=== PATIENT | male | born 1970 | race Caucasian/White ===

== ENCOUNTER 2017-01-25 17:56 | Inpatient (IN) | payer OTHER ==
[~2017-01-25] VITALS: Ht 180.3 cm; Wt 84.1 kg
[~2017-01-25 17:56] MED LIST: ATI1 PO; FOL1 PO; MYCP EXT; NORCO1 TA1 PO; THERAGRAN-M1 TA4 PO; THI100 PO
[2017-01-25 20:31] LABS: BASOPHIL % 0.9 % (0-2); PLATELET COUNT 279 x10^3mcL (130-400); RED CELL DISTRIBUTION WIDTH 14.1 % (11.5-14.5)
[2017-01-25 20:43] LABS: CALCIUM 8.9 mg/dL (8.5-10.1); CARBON DIOXIDE 22.3 mmol/L (21-32); CHLORIDE SERUM 105 mmol/L (98-107); CREATININE SERUM 0.5 mg/dL (0.7-1.3); GFR1 > 60 mL/min; GLUCOSE SERUM 94 mg/dL (74-106); POTASSIUM SERUM 3.7 mmol/L (3.5-5.1); SODIUM SERUM 142 mmol/L (136-145)
[2017-01-25 20:48] LABS: ALBUMIN 3.4 g/dL (3.4-5.0); ALKALINE PHOSPHATASE 83 U/L (46-116); ALT/SGPT 34 U/L (16-63); AST/SGOT 31 U/L (15-37); BILIRUBIN TOTAL 0.4 mg/dL (0.20-1.00); TOTAL PROTEIN, SERUM 7.6 g/dL (6.4-8.2)
[2017-01-25 21:58] VITALS: BP 141/69
[2017-01-25 22:02] VITALS: Ht 180.3 cm; Wt 84.1 kg
[2017-01-25 22:09] LABS: T3 TOTAL 1.48 ng/mL
[2017-01-25 22:25] LABS: CHOLESTEROL/HDL RATIO 1.9
[2017-01-25 22:34] LABS: PHOSPHOROUS 4.7 mg/dL (2.5-4.9)
[2017-01-25 23:24] LABS: FREE T4 1.16 ng/dL (0.76-1.46); FREE THYROXINE INDEX 2.9 ug/dL (1.4-4.5); T4(THYROXINE) 8.8 ug/dL (4.7-13.3)
[2017-01-26 02:54] LABS: microscopic required? NO
[2017-01-26 03:07] LABS: urine erythrocyte NEGATIVE (NEGATIVE)
[2017-01-26 03:15] LABS: AMPHETAMINE QUAL UR NONE DETECTED (NEG <=1000)
[2017-01-26 05:54] VITALS: BP 141/81
[2017-01-26 07:26] LABS: BASOPHIL % 0.4 % (0-2); PLATELET COUNT 239 x10^3mcL (130-400); RED CELL DISTRIBUTION WIDTH 14.5 % (11.5-14.5)
[2017-01-26 07:33] LABS: CALCIUM 8.6 mg/dL (8.5-10.1); CARBON DIOXIDE 26.2 mmol/L (21-32); CHLORIDE SERUM 105 mmol/L (98-107); CREATININE SERUM 0.5 mg/dL (0.7-1.3); GFR1 > 60 mL/min; GLUCOSE SERUM 88 mg/dL (74-106); MAGNESIUM 2.1 mg/dL (1.8-2.4); PHOSPHOROUS 4.2 mg/dL (2.5-4.9); POTASSIUM SERUM 3.6 mmol/L (3.5-5.1); SODIUM SERUM 138 mmol/L (136-145)
[2017-01-26 09:38] VITALS: BP 117/73
[2017-01-26 13:34] VITALS: BP 134/91
[2017-01-26 17:11] VITALS: BP 137/81
[2017-01-26 21:55] VITALS: BP 129/79
[2017-01-27 05:46] VITALS: BP 130/95
[2017-01-27 05:57] LABS: BASOPHIL % 0.4 % (0-2); PLATELET COUNT 212 x10^3mcL (130-400); RED CELL DISTRIBUTION WIDTH 14.4 % (11.5-14.5)
[2017-01-27 06:12] LABS: CALCIUM 8.7 mg/dL (8.5-10.1); CARBON DIOXIDE 27.2 mmol/L (21-32); CHLORIDE SERUM 105 mmol/L (98-107); CREATININE SERUM 0.5 mg/dL (0.7-1.3); GFR1 > 60 mL/min; GLUCOSE SERUM 87 mg/dL (74-106); PHOSPHOROUS 3.9 mg/dL (2.5-4.9); POTASSIUM SERUM 3.7 mmol/L (3.5-5.1); SODIUM SERUM 141 mmol/L (136-145)
[2017-01-27 09:35] VITALS: BP 129/76
[2017-01-27] MEDS ORDERED: PERCOCET1 TAB PO (10:30)
[2017-01-27] MEDS ORDERED: COLACE100 MG PO (10:30)
[2017-01-27] MEDS ORDERED: AUG500 PO (10:34)
[2017-01-27] MEDS ORDERED: LAC PO (10:34)
[2017-01-27 11:22] VITALS: BP 129/76
== END 2017-01-27 13:35 | disposition home or self-care (01) | DRG 383 ==
LOC: ED 17:56 → DU 20:18 → MU 01-26 14:25
PROVIDERS: Emergency Medicine; ADMIT Family Medicine
DX: L03.115 Cellulitis of right lower limb (principal); G92 Toxic encephalopathy; G82.20 Paraplegia, unspecified; B18.2 Chronic viral hepatitis C; S81.851A Open bite, right lower leg, initial encounter; F10.129 Alcohol abuse with intoxication, unspecified; Z59.0 Homelessness; Z99.3 Dependence on wheelchair; Z68.25 Body mass index [BMI] 25.0-25.9, adult; X95.9XXS Assault by unspecified firearm discharge, sequela
CPT/HCPCS: 80307; 83880; 84439; 90715; G0480; J2270; J2405; J2543; J3490; J7030; J7040; Q0092

== ENCOUNTER 2017-01-27 15:07 | Emergency (ER) | payer OTHER ==
[~2017-01-27 15:07] MED LIST changes: +AUG500 PO; +COLACE100 MG PO; +LAC PO; +PERCOCET1 TAB PO
[2017-01-27 17:37] VITALS: BP 128/85
== END 2017-01-27 17:37 | disposition other institution (70) ==
LOC: ED 15:07
DX: Z02.89 Encounter for other administrative examinations (principal); Z88.1 Allergy status to other antibiotic agents

== ENCOUNTER 2017-01-27 15:07 | Emergency (ER) | payer OTHER | END 2017-01-27 17:37 | disposition other institution (70) | LOC: ED 15:07 | DX: Z02.89 Encounter for other administrative examinations (principal); G82.20 Paraplegia, unspecified; B19.20 Unspecified viral hepatitis C without hepatic coma; Z88.1 Allergy status to other antibiotic agents ==

== ENCOUNTER 2017-03-05 19:59 | Emergency (ER) | payer OTHER ==
[2017-03-06 04:00] VITALS: BP 158/98
== END 2017-03-06 04:00 | disposition home or self-care (01) ==
LOC: ED 19:59
DX: S63.502A Unspecified sprain of left wrist, initial encounter (principal); M79.601 Pain in right arm; I10 Essential (primary) hypertension; Z79.899 Other long term (current) drug therapy; Z86.19 Personal history of other infectious and parasitic diseases; Z88.2 Allergy status to sulfonamides; W05.0XXA Fall from non-moving wheelchair, initial encounter; Y93.89 Activity, other specified; Y92.89 Other specified places as the place of occurrence of the external cause; Y99.8 Other external cause status

== ENCOUNTER 2017-03-31 18:39 | Emergency (ER) | payer OTHER ==
[2017-03-31 19:09] LABS: BASOPHIL % 0.7 % (0-2); PLATELET COUNT 227 x10^3mcL (130-400)
[2017-03-31 19:10] LABS: RED CELL DISTRIBUTION WIDTH 15.3 % (11.5-14.5)
[2017-03-31 19:18] LABS: CALCIUM 8.8 mg/dL (8.5-10.1); CARBON DIOXIDE 23.7 mmol/L (21-32); CHLORIDE SERUM 112 mmol/L (98-107); CREATININE SERUM 0.6 mg/dL (0.7-1.3); GFR1 > 60 mL/min; GLUCOSE SERUM 113 mg/dL (74-106); POTASSIUM SERUM 4.3 mmol/L (3.5-5.1); SODIUM SERUM 146 mmol/L (136-145)
[2017-03-31 19:22] LABS: ALBUMIN 3.7 g/dL (3.4-5.0); ALKALINE PHOSPHATASE 99 U/L (46-116); ALT/SGPT 53 U/L (16-63); AST/SGOT 42 U/L (15-37); BILIRUBIN TOTAL 0.2 mg/dL (0.20-1.00); TOTAL PROTEIN, SERUM 7.8 g/dL (6.4-8.2)
[2017-03-31 19:31] LABS: CK-MB 4.7 ng/mL (0-3.6)
[2017-03-31 20:41] VITALS: BP 137/75
== END 2017-03-31 20:41 | disposition home or self-care (01) ==
LOC: ED 18:39
PROVIDERS: Emergency Medicine
DX: R53.1 Weakness (principal); F10.129 Alcohol abuse with intoxication, unspecified; I10 Essential (primary) hypertension; M79.601 Pain in right arm; B19.20 Unspecified viral hepatitis C without hepatic coma; Z88.1 Allergy status to other antibiotic agents
CPT/HCPCS: Q0092

== ENCOUNTER 2017-04-03 09:55 | Inpatient (IN) | payer OTHER ==
[~2017-04-03] VITALS: Ht 180.3 cm; Wt 82.8 kg
[2017-04-03 10:56] LABS: BASOPHIL % 0.2 % (0-2); PLATELET COUNT 207 x10^3mcL (130-400)
[2017-04-03 11:03] LABS: RED CELL DISTRIBUTION WIDTH 15.1 % (11.5-14.5)
[2017-04-03 11:07] LABS: CHLORIDE SERUM 100 mmol/L (98-107); CREATININE SERUM 0.4 mg/dL (0.7-1.3); GFR1 > 60 mL/min; GLUCOSE SERUM 97 mg/dL (74-106); SODIUM SERUM 137 mmol/L (136-145)
[2017-04-03 11:12] LABS: ALBUMIN 3.4 g/dL (3.4-5.0); ALKALINE PHOSPHATASE 103 U/L (46-116); ALT/SGPT 48 U/L (16-63); AST/SGOT 38 U/L (15-37); BILIRUBIN TOTAL 0.3 mg/dL (0.20-1.00); TOTAL PROTEIN, SERUM 7.2 g/dL (6.4-8.2)
[2017-04-03 11:31] LABS: microscopic required? YES; urine erythrocyte NEGATIVE (NEGATIVE)
[2017-04-03 13:04] LABS: CHOLESTEROL/HDL RATIO 2.2
[2017-04-03 13:14] LABS: AMPHETAMINE QUAL UR NONE DETECTED (NEG <=1000)
[2017-04-03 13:14] LABS: FREE T4 1.08 ng/dL (0.76-1.46); FREE THYROXINE INDEX 2.5 ug/dL (1.4-4.5); T4(THYROXINE) 7.4 ug/dL (4.7-13.3)
[2017-04-03 13:48] LABS: T3 TOTAL 1.2 ng/mL
[2017-04-03 13:51] VITALS: BP 156/111
[2017-04-03 18:06] VITALS: BP 132/88
[2017-04-03 21:06] VITALS: BP 119/64
[2017-04-04 03:55] LABS: PLATELET COUNT 207 x10^3mcL (130-400); RED CELL DISTRIBUTION WIDTH 14.4 % (11.5-14.5)
[2017-04-04 03:57] LABS: BASOPHIL % 6.1 % (0-2)
[2017-04-04 04:10] LABS: CALCIUM 8.7 mg/dL (8.5-10.1); CARBON DIOXIDE 27.4 mmol/L (21-32); CHLORIDE SERUM 101 mmol/L (98-107); CREATININE SERUM 0.5 mg/dL (0.7-1.3); GFR1 > 60 mL/min; GLUCOSE SERUM 94 mg/dL (74-106); MAGNESIUM 1.9 mg/dL (1.8-2.4); PHOSPHOROUS 4.4 mg/dL (2.5-4.9); POTASSIUM SERUM 4.1 mmol/L (3.5-5.1); SODIUM SERUM 137 mmol/L (136-145)
[2017-04-04 05:26] VITALS: BP 130/83
[2017-04-04 10:06] VITALS: BP 111/64
[2017-04-04 18:58] VITALS: BP 107/70
[2017-04-04 22:22] VITALS: BP 125/83
[2017-04-05 06:12] VITALS: BP 137/97
[2017-04-05 06:14] LABS: BASOPHIL % 0.4 % (0-2); PLATELET COUNT 180 x10^3mcL (130-400); RED CELL DISTRIBUTION WIDTH 14.4 % (11.5-14.5)
[2017-04-05 06:26] LABS: CALCIUM 8.8 mg/dL (8.5-10.1); CARBON DIOXIDE 25.3 mmol/L (21-32); CHLORIDE SERUM 104 mmol/L (98-107); CREATININE SERUM 0.5 mg/dL (0.7-1.3); GFR1 > 60 mL/min; GLUCOSE SERUM 112 mg/dL (74-106); PHOSPHOROUS 4.1 mg/dL (2.5-4.9); POTASSIUM SERUM 4.1 mmol/L (3.5-5.1); SODIUM SERUM 139 mmol/L (136-145)
[2017-04-05 10:00] VITALS: BP 133/69
[2017-04-05 13:46] VITALS: BP 128/79
[2017-04-05 17:50] VITALS: BP 137/88
[2017-04-05 21:02] VITALS: BP 113/77
[2017-04-06 05:12] VITALS: BP 124/81
[2017-04-06 06:18] LABS: BASOPHIL % 0.4 % (0-2); PLATELET COUNT 179 x10^3mcL (130-400)
[2017-04-06 06:27] LABS: CALCIUM 8.9 mg/dL (8.5-10.1); CARBON DIOXIDE 26.3 mmol/L (21-32); CHLORIDE SERUM 103 mmol/L (98-107); CREATININE SERUM 0.5 mg/dL (0.7-1.3); GFR1 > 60 mL/min; GLUCOSE SERUM 86 mg/dL (74-106); POTASSIUM SERUM 3.9 mmol/L (3.5-5.1); SODIUM SERUM 138 mmol/L (136-145)
[2017-04-06 06:40] LABS: RED CELL DISTRIBUTION WIDTH 14.9 % (11.5-14.5)
[2017-04-06 09:26] VITALS: BP 101/68
[2017-04-06 13:54] VITALS: BP 117/69
[2017-04-06] MEDS ORDERED: PEPCID40 MG PO (16:14)
[2017-04-06 17:02] VITALS: BP 117/69
[2017-04-06 17:03] VITALS: BP 130/90
[2017-04-06] MEDS ORDERED: NORCO1 TA2 PO (17:20)
== END 2017-04-06 19:38 | disposition home or self-care (01) | DRG 243 ==
LOC: ED 09:55 → DU 11:33
PROVIDERS: Emergency Medicine; ADMIT Family Medicine
DX: K21.9 Gastro-esophageal reflux disease without esophagitis (principal); N17.0 Acute kidney failure with tubular necrosis; G92 Toxic encephalopathy; B18.2 Chronic viral hepatitis C; Z68.27 Body mass index [BMI] 27.0-27.9, adult; F15.10 Other stimulant abuse, uncomplicated; F10.10 Alcohol abuse, uncomplicated; N39.0 Urinary tract infection, site not specified; F25.0 Schizoaffective disorder, bipolar type; I10 Essential (primary) hypertension; F44.4 Conversion disorder with motor symptom or deficit; Z59.0 Homelessness; F17.210 Nicotine dependence, cigarettes, uncomplicated; X95.9XXS Assault by unspecified firearm discharge, sequela; T14.8 Other injury of unspecified body region; I25.2 Old myocardial infarction; Z88.3 Allergy status to other anti-infective agents; Z88.0 Allergy status to penicillin
CPT/HCPCS: 83880; 84439; G0480; J0696; J1644; J1885; J2270; J7030

== ENCOUNTER 2017-06-10 22:51 | Emergency (ER) | payer OTHER ==
[~2017-06-10] VITALS: Ht 167.6 cm; Wt 81.6 kg
[~2017-06-10 22:51] MED LIST changes: +NORCO1 TA2 PO; +PEPCID40 MG PO
[2017-06-10 23:26] LABS: BASOPHIL % 0.4 % (0-2); PLATELET COUNT 205 x10^3mcL (130-400); RED CELL DISTRIBUTION WIDTH 14.7 % (11.5-14.5)
[2017-06-10 23:37] LABS: CALCIUM 9.2 mg/dL (8.5-10.1); CHLORIDE SERUM 100 mmol/L (98-107); CREATININE SERUM 0.7 mg/dL (0.7-1.3); GFR1 > 60 mL/min; GLUCOSE SERUM 86 mg/dL (74-106); POTASSIUM SERUM 3.1 mmol/L (3.5-5.1); SODIUM SERUM 140 mmol/L (136-145)
[2017-06-10 23:41] LABS: ALBUMIN 3.5 g/dL (3.4-5.0); ALKALINE PHOSPHATASE 109 U/L (46-116); ALT/SGPT 53 U/L (16-63); AST/SGOT 56 U/L (15-37); BILIRUBIN TOTAL 1.1 mg/dL (0.20-1.00); TOTAL PROTEIN, SERUM 7.9 g/dL (6.4-8.2)
[2017-06-11 00:35] LABS: AMPHETAMINE QUAL UR POSITIVE (NEG <=1000)
[2017-06-11 01:03] VITALS: BP 124/76
== END 2017-06-11 01:03 | disposition home or self-care (01) ==
LOC: ED 22:51
PROVIDERS: Emergency Medicine
DX: F10.129 Alcohol abuse with intoxication, unspecified (principal); E87.6 Hypokalemia; F15.10 Other stimulant abuse, uncomplicated; G82.20 Paraplegia, unspecified; I10 Essential (primary) hypertension; M79.1 Myalgia; B19.20 Unspecified viral hepatitis C without hepatic coma; Z88.1 Allergy status to other antibiotic agents
CPT/HCPCS: 36415; G0480

== ENCOUNTER 2017-06-15 21:55 | Emergency (ER) | payer OTHER | END 2017-06-15 22:33 | disposition left against medical advice (07) | LOC: ED 21:55 | DX: Z53.21 Procedure and treatment not carried out due to patient leaving prior to being seen by health care provider (principal) ==

== ENCOUNTER 2017-07-04 09:27 | Emergency (ER) | payer MEDICAID ==
[~2017-07-04] VITALS: Ht 180.3 cm; Wt 90.7 kg
[2017-07-04 09:33] VITALS: BP 135/85
== END 2017-07-04 11:13 | disposition home or self-care (01) ==
LOC: ED 09:27
DX: F10.229 Alcohol dependence with intoxication, unspecified (principal); G82.20 Paraplegia, unspecified; B19.20 Unspecified viral hepatitis C without hepatic coma

== ENCOUNTER 2017-09-24 13:09 | Emergency (ER) | payer OTHER ==
[2017-09-24 14:27] LABS: BASOPHIL % 0.7 % (0-2); PLATELET COUNT 159 x10^3mcL (130-400)
[2017-09-24 14:29] LABS: RED CELL DISTRIBUTION WIDTH 15.1 % (11.5-14.5)
[2017-09-24 14:57] LABS: CALCIUM 9.4 mg/dL (8.5-10.1); CARBON DIOXIDE 21.7 mmol/L (21-32); CHLORIDE SERUM 104 mmol/L (98-107); CREATININE SERUM 0.4 mg/dL (0.7-1.3); GFR1 > 60 mL/min; GLUCOSE SERUM 86 mg/dL (74-106); SODIUM SERUM 139 mmol/L (136-145)
[2017-09-24 15:03] LABS: ALBUMIN 3.8 g/dL (3.4-5.0); ALKALINE PHOSPHATASE 86 U/L (46-116); ALT/SGPT 36 U/L (16-63); AST/SGOT 39 U/L (15-37); BILIRUBIN TOTAL 0.41 mg/dL (0.20-1.00)
[2017-09-24 15:06] LABS: TOTAL PROTEIN, SERUM 8.3 g/dL (6.4-8.2)
[2017-09-24 15:59] VITALS: BP 140/89
== END 2017-09-24 15:59 | disposition home or self-care (01) ==
LOC: ED 13:09
PROVIDERS: Emergency Medicine
DX: F10.129 Alcohol abuse with intoxication, unspecified (principal)
CPT/HCPCS: 36415; G0480

== ENCOUNTER 2020-12-03 10:23 | Emergency (ER) | payer MEDICAID ==
[~2020-12-03] VITALS: Ht 180.3 cm; Wt 81.6 kg
[~2020-12-03 10:23] MED LIST changes: +ECO81 PO; +NIC21 TD
[2020-12-03 10:30] VITALS: Ht 180.3 cm; Wt 81.6 kg
[2020-12-03 13:56] VITALS: BP 116/83
== END 2020-12-03 13:56 | disposition home or self-care (01) ==
LOC: ED 10:23
DX: F10.129 Alcohol abuse with intoxication, unspecified (principal); I10 Essential (primary) hypertension; Z88.1 Allergy status to other antibiotic agents; Z88.2 Allergy status to sulfonamides; Z59.0 Homelessness; Y90.0 Blood alcohol level of less than 20 mg/100 ml

== ENCOUNTER 2020-12-03 17:28 | Emergency (ER) | payer MEDICAID ==
[~2020-12-03] VITALS: Ht 167.6 cm; Wt 81.6 kg
[2020-12-03 17:36] VITALS: Ht 167.6 cm; Wt 81.6 kg
[2020-12-03 20:01] LABS: PLATELET COUNT 212 x10^3mcL (152-348)
[2020-12-03 20:03] LABS: BASOPHIL % 0.5 % (0.2-1.5); RED CELL DISTRIBUTION WIDTH 14.5 % (12.1-16.2)
[2020-12-03 20:04] LABS: CALCIUM 8.7 mg/dL (8.5-10.1); CARBON DIOXIDE 22.7 mmol/L (21-32); CHLORIDE SERUM 106 mmol/L (98-107); CREATININE SERUM 0.4 mg/dL (0.7-1.3); GFR1 > 60 mL/min; GLUCOSE SERUM 104 mg/dL (74-106); POTASSIUM SERUM 3.7 mmol/L (3.5-5.1); SODIUM SERUM 139 mmol/L (136-145)
[2020-12-03 20:08] LABS: ALBUMIN 3.6 g/dL (3.4-5.0); ALKALINE PHOSPHATASE 76 U/L (46-116); ALT/SGPT 26 U/L (16-63); AST/SGOT 23 U/L (15-37); BILIRUBIN TOTAL 0.13 mg/dL (0.20-1.00); TOTAL PROTEIN, SERUM 7.3 g/dL (6.4-8.2)
[2020-12-04 07:27] VITALS: BP 140/76
== END 2020-12-04 07:27 | disposition home or self-care (01) ==
LOC: ED 17:28
PROVIDERS: Emergency Medicine
DX: R07.89 Other chest pain (principal); I10 Essential (primary) hypertension; F10.10 Alcohol abuse, uncomplicated; Z59.0 Homelessness; Z88.1 Allergy status to other antibiotic agents; Z88.2 Allergy status to sulfonamides
CPT/HCPCS: J1885